=== PATIENT | female | born 1990 | race Two or more races ===

== ENCOUNTER 2021-06-27 17:32 | Emergency (ER) | payer BC ==
[~2021-06-27] VITALS: Ht 160 cm; Wt 46.4 kg
[2021-06-27 21:58] VITALS: BP 103/69
[2021-06-27] MEDS ORDERED: PERTUSS(ACELL),DIPH,TET VAC/PF 0.5 ML SYRINGE IM. ONE (23:00)
[2021-06-27] MEDS ORDERED: AZITHROMYCIN 500 MG TABLET PO ONE (23:00)
== END 2021-06-27 23:30 | disposition home or self-care (01) ==
LOC: EMS 17:32
DX: S61.452A Open bite of left hand, initial encounter (principal); Z88.1 Allergy status to other antibiotic agents; W54.0XXA Bitten by dog, initial encounter; Y93.89 Activity, other specified; Y92.89 Other specified places as the place of occurrence of the external cause; Y99.8 Other external cause status
CPT/HCPCS: 73120; 90471; 90715; 99283; A9575